=== PATIENT | female | born 1985 | race Two or more races ===

== ENCOUNTER 2021-11-02 19:54 | Emergency (ER) | payer SELFPAY ==
[~2021-11-02] VITALS: Ht 165.1 cm; Wt 99.8 kg
[2021-11-02 19:54] VITALS: BP 151/94
== END 2021-11-02 23:13 | disposition left against medical advice (07) ==
LOC: ER 19:57
DX: R00.2 Palpitations (principal); R20.0 Anesthesia of skin; R11.0 Nausea; Z53.21 Procedure and treatment not carried out due to patient leaving prior to being seen by health care provider